=== PATIENT | female | born 1960 | race Caucasian/White ===

== ENCOUNTER 2018-01-28 20:08 | Emergency (ER) | payer OTHER ==
--- NOTE | 2018-01-28 21:04 | RADIOLOGY REPORT (SQ) ---
EXAM DESCRIPTION: WRIST RIGHT 3 VIEWS COMPLETED DATE/TIME: 01/28/2018 8:46 pm REASON FOR STUDY: fall injury COMPARISON: None. NUMBER OF VIEWS: Four views. TECHNIQUE: AP, lateral, and oblique radiographic images acquired of the right wrist. LIMITATIONS: None. FINDINGS: MINERALIZATION: Osteopenia. BONES: Marked degenerative changes are seen of the thumb carpal metacarpal joint. Heterotopic bone f ormation is seen in this region. No fracture or dislocation is demonstrated. SOFT TISSUES: Focal soft tissue swelling overlies the dorsal wrist. OTHER: No other significant finding. IMPRESSION: Focal soft tissue swelling of the dorsal wrist without underlying fracture. Marked dege nerative changes of the thumb carpal metacarpal joint with heterotopic bone formation. TECHNICAL DOCUMENTATION: JOB ID: [id number] [employer]- All Rights Reserved Reading location - IP/workstation name: [email or web address]
[2018-01-28] MEDS ORDERED: OXYCODONE-ACETAMINOPHEN 5-325 MG TABLET PO ONE (21:29)
[2018-01-28] MEDS ORDERED: ONDANSETRON 4 MG TAB.RAPDIS PO ONE (21:29)
--- NOTE | 2018-01-28 21:34 | ER Document Report ---
HPI - HPI Patient complains to provider of: right wrist injury Pain Level: 4 Context: Patient is a 57-year-old female that comes emergency department for chief complaint of injury to the right wrist, she states she had a mechanical fall where she tripped and landed with her hand/arm outstretched, she reports swelling, pain, tingling sensation to her right hand, thumb area, and wrist. She denies hitting her head, she is not on a blood thinner, she denies any other injuries or locations of pain. - REPRODUCTIVE LMP: na Past Medical History - General Information source: Patient - Social History Smoking Status: Never Smoker Frequency of alcohol use: None Drug Abuse: None Lives with: Family Family History: Reviewed & Not Pertinent - Immunizations Hx Diphtheria, Pertussis, Tetanus Vaccination: Yes Vertical Provider Document - CONSTITUTIONAL General Appearance: WD/WN, No Apparent Distress - INFECTION CONTROL TRAVEL OUTSIDE OF THE [place] IN LAST 30 DAYS: No - HEENT HEENT: Atraumatic, Normocephalic - NECK Neck: Normal Inspection - RESPIRATORY Respiratory: Breath Sounds Normal, No Respiratory Distress O2 Sat by Pulse Oximetry: 97 - CARDIOVASCULAR Cardiovascular: Regular Rate, Regular Rhythm - GI/ABDOMEN Gastrointestinal: Abdomen Soft, Abdomen Non-Tender - MUSCULOSKELETAL/EXTREMETIES Musculoskeletal/Extremeties: Tender - Tenderness over the right wrist at the snuffbox area and proceeding over the lower thenar area, there is soft tissue swelling in this area. Pain with range of motion of the wrist, range of motion of the fingers intact, normal capillary refill, sensation intact. Unremarkable upper extremity examination otherwise. - NEURO Level of Consciousness: Awake, Alert, Appropriate Motor/Sensory: No Motor Deficit, No Sensory Deficit - DERM Integumentary: Warm, Dry, No Rash Course - Re-evaluation Re-evalutation: X-ray does not show fracture, shows significant arthritis, shows soft tissue swelling. However based on the location of pain with pain over the snuffbox area and soft tissue swelling, splint will be applied, patient will be referred to orthopedics for additional evaluation and management. Discussed follow-up and return precautions. Patient states understanding and agreement. - Vital Signs Vital signs: Temp Pulse Resp BP Pulse Ox 98.0 F 80 136/81 H 97 01/28/18 21:01 01/28/18 21:01 01/28/18 21:01 01/28/18 21:01 Procedures - Immobilization Right wrist Pre-Proc Neuro Vasc Exam: Normal Immobilizer type: Thumb spica Performed by: PCT Post-Proc Neuro Vasc Exam: Normal Alignment checked and good: Yes Discharge - Discharge Clinical Impression: Right wrist injury Qualifiers: Encounter type: initial encounter Qualified Code(s): S69.91XA - Unspecified injury of right wrist, hand and finger(s), initial encounter Condition: Stable Disposition: HOME, SELF-CARE Additional Instructions: The x-ray does not show a fracture at this time, however your examination is concerning for possible scaphoid bone fracture. I recommend that you wear the thumb spica splint, take Tylenol for pain, take the provided pain medication if needed instead, call the orthopedic referral listed on Tuesday to set up your close follow-up for additional management. Return if you worsen including severe pain or swelling. Prescriptions: Hydrocodone/Acetaminophen [[place] 5-325 mg Tablet] 1 tab PO ASDIR #8 tablet Referrals: PIERRE ROSENTHAL MD [ACTIVE STAFF] - 01/30/18
[2018-01-28 21:58] VITALS: BP 143/81
== END 2018-01-28 22:48 | disposition home or self-care (01) ==
LOC: ER 20:08
DX: S69.91XA Unspecified injury of right wrist, hand and finger(s), initial encounter (principal); W19.XXXA Unspecified fall, initial encounter; M18.11 Unilateral primary osteoarthritis of first carpometacarpal joint, right hand; R20.2 Paresthesia of skin
CPT/HCPCS: 99283; 73110; 29125; S0119

== ENCOUNTER → 2018-10-10 | Outpatient (CLI) | payer OTHER ==
--- NOTE | 2018-10-10 15:45 | EKG REPORT ---
SEVERITY:- ABNORMAL ECG - SINUS RHYTHM MULTIPLE VENTRICULAR PREMATURE COMPLEXES : Confirmed by: Zulma Khoury MD 10-Oct-2018 15:45:25
== END ==
LOC: OD 10:44
PROVIDERS: ATTEND Orthopaedic Surgery
DX: Z01.818 Encounter for other preprocedural examination (principal)
CPT/HCPCS: 93005; 93010

== ENCOUNTER → 2020-01-09 | Outpatient (CLI) | payer OTHER ==
--- NOTE | 2020-01-09 22:31 | EKG REPORT ---
SEVERITY:- ABNORMAL ECG - SINUS RHYTHM CONSIDER ANTEROSEPTAL INFARCT : Confirmed by: Chang Clay 09-Jan-2020 22:30:06
== END ==
LOC: OD 09:12
PROVIDERS: ATTEND Orthopaedic Surgery
DX: Z01.810 Encounter for preprocedural cardiovascular examination (principal)
CPT/HCPCS: 93005; 93010